=== PATIENT | male | born 1980 | race Caucasian/White ===

== ENCOUNTER 2021-05-05 00:09 | Emergency (ER) | payer MEDICAID ==
[~2021-05-05] VITALS: Ht 167.6 cm; Wt 65.8 kg
[2021-05-05 01:02] VITALS: BP 122/88
--- NOTE | 2021-05-05 01:28 | NUR ---
Patient discharged to home in stable condition. Written and verbal after care instructions given. Patient verbalizes understanding of instruction.
[2021-05-05] MEDS ORDERED: IBUPROFEN 400 MG TABLET PO ONE (01:30)
== END 2021-05-05 01:28 | disposition home or self-care (01) ==
LOC: ER 00:12
DX: S60.112A Contusion of left thumb with damage to nail, initial encounter (principal); W22.8XXA Striking against or struck by other objects, initial encounter; Y93.89 Activity, other specified; Y92.89 Other specified places as the place of occurrence of the external cause; Y99.8 Other external cause status
CPT/HCPCS: 73130-TC